=== PATIENT | female | born 2000 | race Caucasian/White ===

== ENCOUNTER 2020-09-02 07:25 | Inpatient (IN) | payer OTHER ==
[2020-09-02 07:54] LABS: Hemoglobin 12.4 g/dL (12.0-16.0); Mean Corpuscular HGB CONC 33.2 g/dL (32.0-36.0); Mean Corpuscular Hemoglobin 30.4 pg (27.0-31.0); Mean Corpuscular Volume 91.3 fL (78.0-98.0); Mean Platelet Volume 7.7 fL (7.4-10.4); Platelet Count 336 thou/uL (130-400); RBC Distribution Width 11.6 % (11.5-14.5); Red Blood Cell (RBC) Count 4.08 mill/uL (4.20-5.40); White Blood Cell (WBC) Count 23.6 thou/uL (4.8-10.8)
[2020-09-02] MEDS ORDERED: Fentanyl 100 MCG/2 ML VIAL ONE ×2 (08:05→08:09)
[2020-09-02] MEDS ORDERED: Boostrix 0.5 ML (Tdap) VIAL ONE (08:06)
[2020-09-02 08:11] LABS: ALT (SGPT) 682 U/L (8-55); AST (SGOT) 789 U/L (5-34); Albumin 3.7 g/dL (3.5-5.0); Alcohol Less than 10 mg/dL (Less than 10); Alkaline Phosphatase 45 U/L (40-110); Anion Gap 17 mmol/L (10-20); BUN (Urea Nitrogen) 10 mg/dL (7.0-18.7); Bilirubin, Total 0.3 mg/dL (0.2-1.2); Calc. Creatinine Clearance 0 mL/min (70-130); Calcium 8.4 mg/dL (7.8-10.44); Carbon Dioxide 16 mmol/L (22-29); Chloride 107 mmol/L (98-107); Globulin 2.7 g/dL (2.4-3.5); Glucose 147 mg/dL (70-105); Lipase 115 U/L (8-78); Potassium 3.6 mmol/L (3.5-5.1); Protein, Total 6.4 g/dL (6.0-8.3); Sodium 136 mmol/L (136-145)
[2020-09-02 08:14] LABS: Band 21 % (5-11); Eosinophils 1 % (0-10); Lymphocytes 19 % (21-51); MDiff Complete? YES; Monocytes 2 % (0-10); Neutrophil 57 % (42-75); Platelet Morphology Comment Appears Adequate; RBC Morphology Normal
[2020-09-02] MEDS ORDERED: Dextrose 50% Abboject 50 ML SYRINGE SLOW IVP PRN (08:17)
[2020-09-02] MEDS ORDERED: Dextrose 5% in Water 1,000 ML IV PRN (08:17)
[2020-09-02] MEDS ORDERED: Ondansetron PF 4 MG/2 ML Vial IVP PRN (08:17)
[2020-09-02 08:18] LABS: BHCG - Serum POSITIVE (NEGATIVE); Pregs Control Background? CLEAR/WHITE (CLR/WHITE); Pregs Control Bar Appear? YES (CONTROL BAR)
[2020-09-02] MEDS ORDERED: Lidocaine 1% w/Epinephrine 1:100K 20 ML VIAL ONE (08:19)
[2020-09-02] MEDS ORDERED: Morphine 2 MG/ML VIAL ONE (08:42)
[2020-09-02] MEDS ORDERED: Ondansetron PF 4 MG/2 ML Vial ONE (08:45)
[2020-09-02 08:48] LABS: Hemoglobin 12.8 g/dL (12.0-16.0)
[2020-09-02 09:00] LABS: Bacteria/HPF None Seen HPF (None Seen); Bilirubin Negative (Negative); Blood, Urine 3+ (Negative); Clarity Clear (Clear); Glucose, Urine (Dipstick) 50 mg/dL (Negative); Ketone, Urine Negative (Negative); Leukocyte Negative Leu/uL (Negative); Nitrite Negative (Negative); Protein, Urine (Dipstick) 50 mg/dL (Neg-Trace); Specific Gravity, Urine 1.033 (1.002-1.036); Urobilinogen Normal mg/dL (Less than 2); WBC/HPF 0-3 HPF (0-3); pH, Urine 7.5 (5.0-9.0)
[2020-09-02 09:01] LABS: INR-International Normal Ratio 1.3; Prothrombin Time 16.6 sec (12.0-14.7)
[2020-09-02 09:02] LABS: PTT 31.1 sec (22.9-36.1)
[2020-09-02 09:05] LABS: Squamous Epithelial 0-3 HPF (0-3)
[2020-09-02 10:00] LABS: SARS-CoV-2 NAA Rapid Test DETECTED (NotDetected)
[2020-09-02] MEDS ORDERED: Calcium Chloride 1 GM/10 ML Abboject SYRINGE IVP SCH (10:15)
[2020-09-02] MEDS ORDERED: Calcium Chloride 13.6 MEQ in Sodium Chloride 0.9% 100 ML IVPB SCH (10:30)
[2020-09-02] MEDS ORDERED: Iopamidol-370 76% 500 ML 1 ML ONE (10:54)
[2020-09-02] MEDS: Famotidine/PF 20 mg/2ml Vial SLOW IVP SCH ×2 (11:07→19:51)
[2020-09-02] MEDS: Morphine 2 MG/ML VIAL SLOW IVP PRN ×2 (11:07→12:25)
[2020-09-02] MEDS: Sodium Chloride 0.9% 1,000 ML IV SCH ×2 (11:43→17:01)
[2020-09-02 12:13] LABS: Hemoglobin 12.2 g/dL (12.0-16.0)
[2020-09-02 12:38] LABS: Lactic Acid 1.7 mmol/L (0.5-2.2)
[2020-09-02] MEDS ORDERED: Acetaminophen 325 MG TAB PO SCH (13:30)
[2020-09-02] MEDS ORDERED: diphenhydrAMINE 50 MG/ML VIAL IM PRN ×2 (13:32→13:40)
[2020-09-02] MEDS ORDERED: diphenhydrAMINE 50 MG/ML VIAL IVP PRN ×2 (13:32→13:40)
[2020-09-02] MEDS ORDERED: Naloxone HCl 0.4 mg/ml Vial IV PRN ×2 (13:32→13:40)
[2020-09-02] MEDS ORDERED: Promethazine HCl 25 MG/ML VIAL IM PRN ×2 (13:32→13:40)
[2020-09-02] MEDS ORDERED: HYDROmorphone 10 mg/100 ml CADD IVPB PRN (13:32)
[2020-09-02] MEDS ORDERED: diphenhydrAMINE 25 MG CAP PO PRN (13:32)
[2020-09-02] MEDS ORDERED: fentaNYL Citrate/PF 2,000 MCG in Sodium Chloride 0.9% 60 ML IV PRN (13:40)
[2020-09-02] MEDS ORDERED: Zolpidem Tartrate 5 MG TAB PO PRN (13:40)
[2020-09-02] MEDS ORDERED: Communication Order-Pharmacy FS SCH (13:45)
[2020-09-02] MEDS ORDERED: Communication Order-Pharmacy FS PRN (13:45)
[2020-09-02] MEDS ORDERED: Fentanyl CADD 100 ML IV SCH (14:00)
[2020-09-02] MEDS ORDERED: Potassium Chloride 40 MEQ, Magnesium Sulfate 2 GM in Sodium Chloride 0.9% 250 ML 250 ML IVPB SCH (14:45)
[2020-09-02 15:08] LABS: CK (CPK) 2043 U/L (29-168); Phosphorus 4.6 mg/dL (2.3-4.7)
[2020-09-02] MEDS: Acetaminophen 325 MG TAB PO SCH ×2 (17:37→23:52)
[2020-09-02 20:15] LABS: Hemoglobin 11.5 g/dL (12.0-16.0)
[2020-09-03] MEDS: Sodium Chloride 0.9% 1,000 ML IV SCH ×3 (03:47→11:55)
[2020-09-03 04:23] LABS: Anion Gap 11 mmol/L (10-20); BUN (Urea Nitrogen) 13 mg/dL (7.0-18.7); Calc. Creatinine Clearance 174 mL/min (70-130); Calcium 7.8 mg/dL (7.8-10.44); Carbon Dioxide 18 mmol/L (22-29); Chloride 109 mmol/L (98-107); Glucose 96 mg/dL (70-105); Potassium 4.1 mmol/L (3.5-5.1); Sodium 134 mmol/L (136-145)
[2020-09-03 04:24] LABS: CK (CPK) 1480 U/L (29-168); Magnesium 1.8 mg/dL (1.6-2.6)
[2020-09-03 04:45] LABS: #Lymphocytes 1.5 thou/uL (1.20-3.40); #Monocytes 0.8 thou/uL (0.11-0.59); #Neutrophils 6.4 thou/uL (1.40-6.50); %Basophils 0.4 % (0.0-1.0); %Eosinophils 0.5 % (0.0-10.0); %Lymphocytes 17.1 % (21.0-51.0); %Monocytes 8.7 % (0.0-10.0); %Neutrophils 73.3 % (42.0-75.0); Hemoglobin 9.4 g/dL (12.0-16.0); Mean Corpuscular HGB CONC 33.4 g/dL (32.0-36.0); Mean Corpuscular Hemoglobin 29.9 pg (27.0-31.0); Mean Corpuscular Volume 89.5 fL (78.0-98.0); Mean Platelet Volume 7.8 fL (7.4-10.4); Platelet Count 158 thou/uL (130-400); RBC Distribution Width 13.1 % (11.5-14.5); Red Blood Cell (RBC) Count 3.15 mill/uL (4.20-5.40); White Blood Cell (WBC) Count 8.8 thou/uL (4.8-10.8)
[2020-09-03] MEDS: Acetaminophen 325 MG TAB PO SCH ×4 (06:17→23:05)
[2020-09-03] MEDS: Famotidine/PF 20 mg/2ml Vial SLOW IVP SCH ×2 (08:03→21:29)
[2020-09-03] MEDS ORDERED: Magnesium 2 GM/50 ML 2 GM in Premix Bag 1 BAG IVPB SCH (08:15)
[2020-09-03 08:50] LABS: Hemoglobin 9.3 g/dL (12.0-16.0)
[2020-09-03 12:58] VITALS: BMI 31.4
[2020-09-03 15:01] LABS: Hemoglobin 8.7 g/dL (12.0-16.0)
[2020-09-03] MEDS: traMADol HCl 50 MG TAB PO SCH ×2 (16:50→21:37)
[2020-09-03] MEDS: Ferrous Sulfate 325 MG TAB PO SCH (16:51)
[2020-09-03] MEDS: Ondansetron PF 4 MG/2 ML Vial IVP PRN (20:22)
[2020-09-03] MEDS: Senokot 8.6 MG TAB PO SCH (21:29)
[2020-09-03] MEDS: Ascorbic Acid 500 mg Chewable Tablet PO SCH (21:29)
[2020-09-03 23:55] LABS: Hemoglobin 8.2 g/dL (12.0-16.0)
[2020-09-04 04:05] LABS: #Eosinphils 0.1 thou/uL (0.0-0.7); #Lymphocytes 1.6 thou/uL (1.20-3.40); #Monocytes 0.5 thou/uL (0.11-0.59); %Basophils 0.2 % (0.0-1.0); %Eosinophils 1.7 % (0.0-10.0); %Lymphocytes 19.3 % (21.0-51.0); %Monocytes 6.2 % (0.0-10.0); %Neutrophils 72.5 % (42.0-75.0); Mean Corpuscular HGB CONC 33.9 g/dL (32.0-36.0); Mean Corpuscular Hemoglobin 30.2 pg (27.0-31.0); Mean Corpuscular Volume 88.9 fL (78.0-98.0); Mean Platelet Volume 7.7 fL (7.4-10.4); Platelet Count 125 thou/uL (130-400); RBC Distribution Width 12.7 % (11.5-14.5); Red Blood Cell (RBC) Count 2.66 mill/uL (4.20-5.40); White Blood Cell (WBC) Count 8.3 thou/uL (4.8-10.8)
[2020-09-04] MEDS: traMADol HCl 50 MG TAB PO SCH ×4 (04:10→21:23)
[2020-09-04 04:28] LABS: Anion Gap 9 mmol/L (10-20); BUN (Urea Nitrogen) 7 mg/dL (7.0-18.7); CK (CPK) 816 U/L (29-168); Calc. Creatinine Clearance 218 mL/min (70-130); Calcium 7.9 mg/dL (7.8-10.44); Carbon Dioxide 23 mmol/L (22-29); Chloride 104 mmol/L (98-107); Glucose 74 mg/dL (70-105); Magnesium 1.8 mg/dL (1.6-2.6); Phosphorus 3.2 mg/dL (2.3-4.7); Potassium 3.4 mmol/L (3.5-5.1); Sodium 133 mmol/L (136-145)
[2020-09-04] MEDS: Acetaminophen 325 MG TAB PO SCH ×3 (06:00→16:51)
[2020-09-04] MEDS ORDERED: Magnesium 2 GM/50 ML 2 GM in Premix Bag 1 BAG IVPB SCH (06:45)
[2020-09-04] MEDS ORDERED: Potassium Chloride 20 MEQ TAB PO SCH (08:00)
[2020-09-04] MEDS: Ferrous Sulfate 325 MG TAB PO SCH ×2 (08:13→16:51)
[2020-09-04] MEDS: Polyethylene Glycol 3350 17 GM Packet PO SCH (08:14)
[2020-09-04] MEDS: Ascorbic Acid 500 mg Chewable Tablet PO SCH ×2 (08:14→21:24)
[2020-09-04] MEDS: Famotidine/PF 20 mg/2ml Vial SLOW IVP SCH (08:14)
[2020-09-04] MEDS: Senokot 8.6 MG TAB PO SCH (08:14)
[2020-09-04] MEDS: Famotidine 20 MG TAB PO SCH (10:22)
[2020-09-04] MEDS: Prenatal Vitamin 1 TAB PO SCH (10:28)
[2020-09-04] MEDS: Morphine 2 MG/ML VIAL SLOW IVP PRN ×2 (15:12→23:49)
[2020-09-04] MEDS: Sodium Chloride 0.9% 1,000 ML IV SCH (18:12)
[2020-09-05] MEDS: Famotidine 20 MG TAB PO SCH ×3 (02:32→21:12)
[2020-09-05] MEDS: Morphine 2 MG/ML VIAL SLOW IVP PRN (04:05)
[2020-09-05] MEDS: Acetaminophen 325 MG TAB PO SCH ×4 (04:07→18:00)
[2020-09-05] MEDS: Senokot 8.6 MG TAB PO SCH ×3 (04:18→21:13)
[2020-09-05 06:00] LABS: #Eosinphils 0.1 thou/uL (0.0-0.7); #Lymphocytes 0.9 thou/uL (1.20-3.40); #Monocytes 0.7 thou/uL (0.11-0.59); #Neutrophils 9.5 thou/uL (1.40-6.50); %Basophils 0.2 % (0.0-1.0); %Eosinophils 1.1 % (0.0-10.0); %Lymphocytes 8.1 % (21.0-51.0); %Neutrophils 84.6 % (42.0-75.0); Hemoglobin 8.7 g/dL (12.0-16.0); Mean Corpuscular HGB CONC 34.4 g/dL (32.0-36.0); Mean Corpuscular Hemoglobin 30.7 pg (27.0-31.0); Mean Corpuscular Volume 89.3 fL (78.0-98.0); Mean Platelet Volume 7.7 fL (7.4-10.4); Platelet Count 155 thou/uL (130-400); RBC Distribution Width 12.4 % (11.5-14.5); Red Blood Cell (RBC) Count 2.83 mill/uL (4.20-5.40); White Blood Cell (WBC) Count 11.2 thou/uL (4.8-10.8)
[2020-09-05] MEDS ORDERED: Potassium Chloride 20 MEQ TAB PO SCH (07:15)
[2020-09-05] MEDS: traMADol HCl 50 MG TAB PO SCH ×4 (07:32→21:37)
[2020-09-05] MEDS: Ascorbic Acid 500 mg Chewable Tablet PO SCH ×2 (09:07→21:13)
[2020-09-05] MEDS: Ferrous Sulfate 325 MG TAB PO SCH ×2 (09:07→18:00)
[2020-09-05] MEDS: Prenatal Vitamin 1 TAB PO SCH (09:07)
[2020-09-05] MEDS: Polyethylene Glycol 3350 17 GM Packet PO SCH (09:08)
[2020-09-05] MEDS ORDERED: Morphine 2 MG/ML VIAL SLOW IVP PRN (10:04)
[2020-09-06] MEDS: Acetaminophen 325 MG TAB PO SCH ×5 (00:27→23:26)
[2020-09-06] MEDS: traMADol HCl 50 MG TAB PO SCH ×4 (03:57→21:51)
[2020-09-06 05:34] LABS: #Eosinphils 0.2 thou/uL (0.0-0.7); #Monocytes 0.8 thou/uL (0.11-0.59); #Neutrophils 9.3 thou/uL (1.40-6.50); %Basophils 0.2 % (0.0-1.0); %Eosinophils 1.8 % (0.0-10.0); %Lymphocytes 8.9 % (21.0-51.0); %Monocytes 6.7 % (0.0-10.0); %Neutrophils 82.5 % (42.0-75.0); Hemoglobin 9.1 g/dL (12.0-16.0); Mean Corpuscular Hemoglobin 31.1 pg (27.0-31.0); Mean Corpuscular Volume 88.8 fL (78.0-98.0); Mean Platelet Volume 7.3 fL (7.4-10.4); Platelet Count 192 thou/uL (130-400); RBC Distribution Width 12.8 % (11.5-14.5); Red Blood Cell (RBC) Count 2.93 mill/uL (4.20-5.40); White Blood Cell (WBC) Count 11.2 thou/uL (4.8-10.8)
[2020-09-06] MEDS: Ascorbic Acid 500 mg Chewable Tablet PO SCH ×2 (09:03→20:31)
[2020-09-06] MEDS: Senokot 8.6 MG TAB PO SCH ×2 (09:03→20:32)
[2020-09-06] MEDS: Ferrous Sulfate 325 MG TAB PO SCH ×2 (09:03→17:16)
[2020-09-06] MEDS: Prenatal Vitamin 1 TAB PO SCH (09:03)
[2020-09-06] MEDS: Famotidine 20 MG TAB PO SCH ×2 (09:03→20:31)
[2020-09-06] MEDS: Polyethylene Glycol 3350 17 GM Packet PO SCH (09:03)
[2020-09-06] MEDS ORDERED: Ketorolac Tromethamine 30 MG/ML VIAL IVP SCH (21:00)
[2020-09-06] MEDS: traMADol HCl 50 MG TAB PO PRN (23:27)
[2020-09-07] MEDS ORDERED: Morphine 2 MG/ML VIAL SLOW IVP SCH ×2 (00:45→02:00)
[2020-09-07 02:33] LABS: #Eosinphils 0.2 thou/uL (0.0-0.7); #Lymphocytes 1.3 thou/uL (1.20-3.40); #Neutrophils 10.1 thou/uL (1.40-6.50); %Basophils 0.3 % (0.0-1.0); %Eosinophils 1.5 % (0.0-10.0); %Lymphocytes 10.2 % (21.0-51.0); %Monocytes 7.9 % (0.0-10.0); %Neutrophils 80.2 % (42.0-75.0); Mean Corpuscular HGB CONC 34.4 g/dL (32.0-36.0); Mean Corpuscular Hemoglobin 30.7 pg (27.0-31.0); Mean Corpuscular Volume 89.4 fL (78.0-98.0); Mean Platelet Volume 7.2 fL (7.4-10.4); Platelet Count 240 thou/uL (130-400); Red Blood Cell (RBC) Count 3.25 mill/uL (4.20-5.40); White Blood Cell (WBC) Count 12.6 thou/uL (4.8-10.8)
[2020-09-07 02:53] LABS: Anion Gap 20 mmol/L (10-20); BUN (Urea Nitrogen) 6 mg/dL (7.0-18.7); Calc. Creatinine Clearance 210 mL/min (70-130); Calcium 9.2 mg/dL (7.8-10.44); Carbon Dioxide 14 mmol/L (22-29); Chloride 102 mmol/L (98-107); Glucose 76 mg/dL (70-105); Magnesium 1.9 mg/dL (1.6-2.6); Phosphorus 4.1 mg/dL (2.3-4.7); Potassium 3.5 mmol/L (3.5-5.1); Sodium 132 mmol/L (136-145)
[2020-09-07] MEDS: traMADol HCl 50 MG TAB PO SCH ×4 (03:50→23:12)
[2020-09-07] MEDS: Acetaminophen 325 MG TAB PO SCH ×4 (05:02→23:12)
[2020-09-07] MEDS: traMADol HCl 50 MG TAB PO PRN (05:03)
[2020-09-07] MEDS: Ferrous Sulfate 325 MG TAB PO SCH ×2 (08:20→16:34)
[2020-09-07] MEDS: Ascorbic Acid 500 mg Chewable Tablet PO SCH ×2 (08:21→19:54)
[2020-09-07] MEDS: Famotidine 20 MG TAB PO SCH ×2 (08:21→19:54)
[2020-09-07] MEDS: Prenatal Vitamin 1 TAB PO SCH (08:21)
[2020-09-07] MEDS: Senokot 8.6 MG TAB PO SCH ×2 (08:21→19:54)
[2020-09-07] MEDS: Polyethylene Glycol 3350 17 GM Packet PO SCH (08:21)
[2020-09-07] MEDS: Ondansetron PF 4 MG/2 ML Vial IVP PRN (08:24)
[2020-09-07] MEDS ORDERED: Iopamidol-370 76% 500 ML 1 ML ONE (12:34)
[2020-09-07] MEDS: diphenhydrAMINE 25 MG CAP PO PRN (21:14)
[2020-09-08] MEDS: traMADol HCl 50 MG TAB PO SCH ×4 (03:41→22:45)
[2020-09-08] MEDS: Acetaminophen 325 MG TAB PO SCH ×4 (05:08→22:46)
[2020-09-08 05:24] LABS: #Eosinphils 0.2 thou/uL (0.0-0.7); #Lymphocytes 1.2 thou/uL (1.20-3.40); #Monocytes 1.2 thou/uL (0.11-0.59); #Neutrophils 12.8 thou/uL (1.40-6.50); %Basophils 0.1 % (0.0-1.0); %Eosinophils 1.3 % (0.0-10.0); %Lymphocytes 7.5 % (21.0-51.0); %Monocytes 7.9 % (0.0-10.0); %Neutrophils 83.3 % (42.0-75.0); Hemoglobin 10.6 g/dL (12.0-16.0); Mean Corpuscular HGB CONC 31.6 g/dL (32.0-36.0); Mean Corpuscular Hemoglobin 28.6 pg (27.0-31.0); Mean Corpuscular Volume 90.3 fL (78.0-98.0); Mean Platelet Volume 7.5 fL (7.4-10.4); Platelet Count 321 thou/uL (130-400); RBC Distribution Width 13.4 % (11.5-14.5); Red Blood Cell (RBC) Count 3.72 mill/uL (4.20-5.40); White Blood Cell (WBC) Count 15.3 thou/uL (4.8-10.8)
[2020-09-08 05:49] LABS: Anion Gap 21 mmol/L (10-20); BUN (Urea Nitrogen) 7 mg/dL (7.0-18.7); Calc. Creatinine Clearance 210 mL/min (70-130); Calcium 9.6 mg/dL (7.8-10.44); Carbon Dioxide 12 mmol/L (22-29); Chloride 100 mmol/L (98-107); Glucose 74 mg/dL (70-105); Magnesium 1.9 mg/dL (1.6-2.6); Phosphorus 3.8 mg/dL (2.3-4.7); Potassium 3.4 mmol/L (3.5-5.1); Sodium 130 mmol/L (136-145)
[2020-09-08] MEDS: Ascorbic Acid 500 mg Chewable Tablet PO SCH ×2 (08:08→19:30)
[2020-09-08] MEDS: Ferrous Sulfate 325 MG TAB PO SCH ×2 (08:08→17:33)
[2020-09-08] MEDS: Prenatal Vitamin 1 TAB PO SCH (08:08)
[2020-09-08] MEDS: Famotidine 20 MG TAB PO SCH ×2 (08:08→19:30)
[2020-09-08] MEDS: Senokot 8.6 MG TAB PO SCH ×2 (08:14→19:31)
[2020-09-08] MEDS: Polyethylene Glycol 3350 17 GM Packet PO SCH (08:14)
[2020-09-08] MEDS: traMADol HCl 50 MG TAB PO PRN (14:13)
[2020-09-08] MEDS: Sodium Chloride 1 GM TAB PO SCH (19:30)
[2020-09-08] MEDS: diphenhydrAMINE 25 MG CAP PO PRN (22:45)
[2020-09-09] MEDS: traMADol HCl 50 MG TAB PO SCH ×2 (04:50→11:13)
[2020-09-09] MEDS: Acetaminophen 325 MG TAB PO SCH ×2 (04:50→11:12)
[2020-09-09] MEDS: Prenatal Vitamin 1 TAB PO SCH (08:31)
[2020-09-09] MEDS: Ascorbic Acid 500 mg Chewable Tablet PO SCH (08:31)
[2020-09-09] MEDS: Famotidine 20 MG TAB PO SCH (08:31)
[2020-09-09] MEDS: Ferrous Sulfate 325 MG TAB PO SCH (08:31)
[2020-09-09] MEDS: Senokot 8.6 MG TAB PO SCH (08:31)
[2020-09-09] MEDS: Sodium Chloride 1 GM TAB PO SCH (08:31)
[2020-09-09] MEDS: Polyethylene Glycol 3350 17 GM Packet PO SCH (08:31)
[2020-09-09 12:45] VITALS: BP 139/90; TEMP 99.1
== END 2020-09-09 15:20 | disposition home or self-care (01) | DRG 963 ==
LOC: ERS 07:25 → CCU 08:17 → SURG A 09-04 14:38
PROVIDERS: ADMIT Surgery; ATTEND Surgery
PROC: 02H633Z Insertion of Infusion Device into Right Atrium, Percutaneous Approach (ICD-10-PCS; principal; 2020-09-02)
PROC: 0HQ1XZZ Repair Face Skin, External Approach (ICD-10-PCS; 2020-09-02)
PROC: 30233N1 Transfusion of Nonautologous Red Blood Cells into Peripheral Vein, Percutaneous Approach (ICD-10-PCS; 2020-09-02)
PROC: 0HQ0XZZ Repair Scalp Skin, External Approach (ICD-10-PCS; 2020-09-02)
PROC: 3E0234Z Introduction of Serum, Toxoid and Vaccine into Muscle, Percutaneous Approach (ICD-10-PCS; 2020-09-02)
DX: S06.0X9A Concussion with loss of consciousness of unspecified duration, initial encounter (principal); S36.116A Major laceration of liver, initial encounter; U07.1 COVID-19; S27.0XXA Traumatic pneumothorax, initial encounter; S22.32XA Fracture of one rib, left side, initial encounter for closed fracture; D62 Acute posthemorrhagic anemia; E87.2 Acidosis; S27.321A Contusion of lung, unilateral, initial encounter; E87.1 Hypo-osmolality and hyponatremia; Z33.1 Pregnant state, incidental; Z23 Encounter for immunization; S01.112A Laceration without foreign body of left eyelid and periocular area, initial encounter; E87.6 Hypokalemia; E83.42 Hypomagnesemia; F07.81 Postconcussional syndrome; V43.52XA Car driver injured in collision with other type car in traffic accident, initial encounter; Y92.410 Unspecified street and highway as the place of occurrence of the external cause; R40.2362 Coma scale, best motor response, obeys commands, at arrival to emergency department; R40.2142 Coma scale, eyes open, spontaneous, at arrival to emergency department; R40.2242 Coma scale, best verbal response, confused conversation, at arrival to emergency department; S42.022A Displaced fracture of shaft of left clavicle, initial encounter for closed fracture
CPT/HCPCS: 0240U; 12002; 12011; 36415; 36430; 70450; 71045; 71260; 72125; 74177; 76856; 80048; 80053; 80307; 81003; 81015; 82550; 83605; 83690; 83735; 84100; 84702; 84703; 85025; 85610; 85730; 86850; 86900; 86901; 87086; 90384; 90471; 90715; 93005; 93970; 94760; 96372; 96374; 96375; 99292; G0390; J0690; J1885; J2270; J2405; J3010; J3475; J3480; J3490; J7050; P9016; Q0163; Q9967; S0028

== ENCOUNTER 2020-09-13 11:33 | Emergency (ER) | payer OTHER ==
[2020-09-13 12:13] LABS: #Eosinphils 0.2 thou/uL (0.0-0.7); #Lymphocytes 1.6 thou/uL (1.20-3.40); #Neutrophils 10.4 thou/uL (1.40-6.50); %Basophils 0.3 % (0.0-1.0); %Eosinophils 1.7 % (0.0-10.0); %Lymphocytes 12.4 % (21.0-51.0); %Monocytes 7.5 % (0.0-10.0); %Neutrophils 78.2 % (42.0-75.0); Hemoglobin 10.9 g/dL (12.0-16.0); Mean Corpuscular HGB CONC 31.3 g/dL (32.0-36.0); Mean Corpuscular Hemoglobin 28.2 pg (27.0-31.0); Mean Corpuscular Volume 90.2 fL (78.0-98.0); Platelet Count 593 thou/uL (130-400); RBC Distribution Width 13.7 % (11.5-14.5); Red Blood Cell (RBC) Count 3.85 mill/uL (4.20-5.40); White Blood Cell (WBC) Count 13.3 thou/uL (4.8-10.8)
[2020-09-13 12:41] LABS: ALT (SGPT) 50 U/L (8-55); AST (SGOT) 37 U/L (5-34); Albumin 3.6 g/dL (3.5-5.0); Alkaline Phosphatase 130 U/L (40-110); Anion Gap 16 mmol/L (10-20); BUN (Urea Nitrogen) 8 mg/dL (7.0-18.7); Calc. Creatinine Clearance 0 mL/min (70-130); Calcium 9.9 mg/dL (7.8-10.44); Carbon Dioxide 22 mmol/L (22-29); Globulin 4.6 g/dL (2.4-3.5); Glucose 87 mg/dL (70-105); Potassium 3.4 mmol/L (3.5-5.1); Protein, Total 8.2 g/dL (6.0-8.3)
[2020-09-13 13:07] LABS: Chloride 100 mmol/L (98-107); Sodium 135 mmol/L (136-145)
== END 2020-09-13 13:02 | disposition home or self-care (01) ==
LOC: ERS 11:33
DX: S01.01XD Laceration without foreign body of scalp, subsequent encounter (principal); X58.XXXD Exposure to other specified factors, subsequent encounter
CPT/HCPCS: 36415

== ENCOUNTER 2023-07-14 21:14 | Emergency (ER) | payer MEDICAID, OTHER ==
[2023-07-14] MEDS ORDERED: Acetaminophen 325 MG TAB ONE (22:13)
[2023-07-14] MEDS ORDERED: Lidocaine 4% Patch TD SCH (22:30)
[2023-07-15] MEDS ORDERED: Transdermal Patch Removal TOP SCH (10:30)
== END 2023-07-14 22:37 | disposition home or self-care (01) ==
LOC: ERS 21:14
DX: O99.891 Other specified diseases and conditions complicating pregnancy (principal); M54.42 Lumbago with sciatica, left side; Z3A.28 28 weeks gestation of pregnancy
CPT/HCPCS: 99284